=== PATIENT | female | born 1940 ===

== ENCOUNTER 2024-10-14 01:11 | Outpatient (CLI) | payer MEDICARE, SELFPAY ==
[2024-10-14] MEDS: Inhaler, Assist Device 1 EACH MC (16:19)
[2024-10-14] MEDS: Levalbuterol HFA 15 GM INH 4 PUFF IH (16:20)
--- NOTE | 2024-10-17 08:55 | W.PFT ---
Date of service: 10/14/24 Time of Service: 14:37 Pulmonary Function Test Result Indications: Dyspnea with exertion Impression 1. Good patient effort was noted. ATS standards for reproducibility were met. 2. Spirometry showed mild obstructive lung disease with an FEV1 of 80% (1.3 L) 3. Following the administration of a bronchodilator there was not a significant response 4. TLC is normal. No evidence of restrictive lung disease 5. DLCO was normal
== END 2024-10-14 01:12 | disposition home or self-care (01) ==
LOC: RT 01:12
PROVIDERS: Visit Provider Internal Medicine Pulmonary Disease
DX: R05.2 Subacute cough (principal); J44.9 Chronic obstructive pulmonary disease, unspecified
CPT/HCPCS: 94060; 94726; 94729

== ENCOUNTER → 2024-11-17 09:12 | Outpatient (BNVA) | payer MEDICARE, SELFPAY | PROVIDERS: PCP Nurse Practitioner Family; Referring Provider Nurse Practitioner Family; Visit Provider Internal Medicine Pulmonary Disease | DX: J45.50 Severe persistent asthma, uncomplicated (principal); R05.2 Subacute cough; J30.9 Allergic rhinitis, unspecified; R06.00 Dyspnea, unspecified | CPT/HCPCS: 99205; 36415 ==

== ENCOUNTER 2024-11-17 17:46 | Outpatient (REF) | payer MEDICARE, SELFPAY ==
[2024-11-17 14:07] LABS: Abs Immature Grans 0.02 10^3/uL (0.0-0.06); HCT 40.3 % (36.0-46.0); HGB 13.1 g/dL (11.2-15.7); Immature Grans % 0.3 %; MCH 27.9 pg (27.0-33.0); MCHC 32.5 % (32.0-36.0); MCV 86 fL (80-95); MPV 10.7 fL (8.0-11.0); Platelet Count 361 10^3/uL (130-400); RBC 4.69 10^6/uL (3.93-5.22); RDW 14.9 % (11.7-14.6); RDW-SD 47.1 fL; WBC 7.09 10^3/uL (4.4-10.8)
== END 2024-11-17 17:47 | disposition home or self-care (01) ==
LOC: LBN 17:46
PROVIDERS: PCP Nurse Practitioner Family; Visit Provider Internal Medicine Pulmonary Disease
DX: J45.40 Moderate persistent asthma, uncomplicated (principal)
CPT/HCPCS: 82785; 85025; 86003